=== PATIENT | female | born 1985 | race Caucasian/White ===

== ENCOUNTER 2017-01-18 10:23 | Emergency (ER) | payer OTHER ==
[~2017-01-18] VITALS: Ht 162.6 cm; Wt 75.3 kg
[2017-01-18 10:27] VITALS: BP 119/77
== END 2017-01-18 11:32 | disposition left against medical advice (07) ==
LOC: ED 10:23
DX: R51 Headache (principal); Z53.21 Procedure and treatment not carried out due to patient leaving prior to being seen by health care provider

== ENCOUNTER 2017-02-17 20:58 | Emergency (ER) | payer OTHER ==
[~2017-02-17] VITALS: Ht 162.6 cm; Wt 74.8 kg
[2017-02-17 22:46] VITALS: BP 157/99
== END 2017-02-17 22:19 | disposition left against medical advice (07) ==
LOC: ED 20:58
DX: Z53.21 Procedure and treatment not carried out due to patient leaving prior to being seen by health care provider (principal)

== ENCOUNTER 2020-05-27 21:49 | Emergency (ER) | payer OTHER ==
[~2020-05-27] VITALS: Ht 162.6 cm; Wt 73.5 kg
[2020-05-27 21:50] VITALS: Ht 162.6 cm; Wt 73.5 kg
[2020-05-27 23:16] VITALS: BP 157/97
== END 2020-05-27 23:16 | disposition home or self-care (01) ==
LOC: ED 21:49
DX: U07.1 COVID-19 (principal); Z88.2 Allergy status to sulfonamides; Z88.1 Allergy status to other antibiotic agents; Z98.51 Tubal ligation status; Z98.890 Other specified postprocedural states
CPT/HCPCS: U0003